=== PATIENT | male | born 1990 | race African-American/Black ===

== ENCOUNTER 2020-09-01 18:00 | Emergency (ER) | payer OTHER, SELFPAY ==
--- NOTE | ~2020-09-01 | XR_ITS ---
EXAMINATION: XR KNEE, RIGHT CLINICAL INFORMATION: Pain status post injury COMPARISON: None TECHNIQUE: Four views of the right knee. FINDINGS: Bones and soft tissues are normal. No fracture or joint effusion. Alignment is anatomic. Joint spaces are well maintained. No abnormal soft tissue calcification. XR/XR knee RT 4V IMPRESSION: Normal right knee.
[2020-09-01 18:02] VITALS: BP 150/61; PULSE 68; RESP 16; TEMP 36.9; O2SAT 97; BMI 29.4
--- NOTE | 2020-09-01 19:02 | ED_ITS ---
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 States the patellar area does not hurt and he has not had any fall. States he is able to ambulate per hurts with certain movements on the inner side of the knee. This occurred today just prior to arrival. complaint: knee injury Onset (ago): hour(s) Related Data Previous Rx's Medication Instructions Recorded ibuprofen 800 mg PO Q8H PRN #15 tab 09/01/20 Allergies Allergy/AdvReac Type Severity Reaction Status Date / Time No Known Allergies Allergy Verified 09/01/20 18:07 Review of Systems Review of Systems: Constitutional: No Weight loss, No Fever, No Chills, No Night Sweats, No Fatigue, No Malaise ENT/Mouth: Negative Eyes: Negative Cardiovascular: Negative Respiratory: Negative Gastrointestinal: Negative Genitourinary: Negative Musculoskeletal: No joint pain, No Myalgias, No Joint Swelling, as on per HPI Skin: No Skin Lesions, No rash Neuro: No Weakness, No Numbness, No Paresthesias, No Loss of Consciousness, No Dizziness, No Headache Psych: No Social Issues Heme/Lymph: No Bruising, No Bleeding,No Lymphadenopathy Endocrine: No Polyuria, No Polydipsia, No Temperature Intolerance Yes all other systems are reviewed and are negative [facility] Past Medical History Medical History No known health problems Social History Social History Smoked in Last 30 Days: No Use of substances other than those prescribed or required for medical reasons: No Advance Directives: No Advance Directives Information Provided: Yes Physical Exam Vital Signs: Vital Signs: Last Vital Signs Temp 98.4 F 09/01/20 18:02 Pulse 68 09/01/20 18:02 Resp 16 09/01/20 18:02 BP 150/61 H 09/01/20 18:02 Pulse Ox 97 09/01/20 18:02 Body Mass Index 29.4 Reviewed Const: General: cooperative and healthy appearing; No acute distress or int oxicated appearing Nutritional Appearance: average body habitus Orientation/consciousness: patient oriented x3 HENMT: Head: Yes normal to inspection Ears: hearing grossly normal bilaterally Eyes: General: appearance normal, both eyes and all related structures Visual Weiss: normal visual weiss by confrontation Neck: Neck: Yes normal visual inspection, No positive Brudzinski's sign, No positive Kernig's sign and No tender Thyroid: Thyroid normal Chest: Chest palpation & inspection: normal inspection of the chest Resp: Effort & Inspection: normal respiratory effort Auscultation: clear to auscultation bilaterally Cardio: Jugular venous distension: no JVD Rhythm: regular rhythm Heart sounds: S1 normal heart sound present and S2 normal heart sound present : General: Yes no CVA tenderness Back/Spine/Pelvis: Back: no CVA tenderness Skin: General skin exam: no rashes or lesions noted Neuro: General: patient oriented x3 Extrem: Other: Negative Homans, no lower extremity edema, squeeze test within normal limits. General: Yes normal to inspection Right lower extremity: full ROM and knee Details: normal to inspection and tenderness Location: of the medial joint line; not of the patella; no swelling Course Course Course Narrative: AP of strain type injury to the medial ligament of the right knee x-ray without evidence of acute fracture. Waylon wrap and crutches with orthopedic follow-up, rice, NSAIDs. Discharge Plan Discharge Clinical Impression: Sprain of collateral ligament of right knee Qualifiers: Encounter type: initial encounter Qualified Code(s): S83.401A - Sprain of unspecified collateral ligament of right knee, initial encounter Patient Disposition: Home, Self-Care Instructions: Crutch Instructions (ED), Knee Pain (ED) Additional Instructions: Ice, elevate Compress Waylon wrap Crutches Tylenol or ibuprofen for pain discomfort Return if any concerns or worsening symptoms Otherwise follow up with her primary care doctor as discussed Thank you Prescriptions: New ibuprofen 800 mg tablet 800 mg PO Q8H PRN (Reason: pain) Qty: 15 RF: 0 Referrals: Rashad Owens MD [Physician] - 10 days
== END 2020-09-01 19:30 | disposition home or self-care (01) ==
PROVIDERS: Emergency Provider Internal Medicine
DX: S83.401A Sprain of unspecified collateral ligament of right knee, initial encounter (principal); X50.1XXA Overexertion from prolonged static or awkward postures, initial encounter; Y93.B9 Activity, other involving muscle strengthening exercises; Y92.84 Military training ground as the place of occurrence of the external cause; Y99.1 Military activity
CPT/HCPCS: 73564; 99283; 99284